=== PATIENT | female | born 2005 | race Caucasian/White ===

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

== ENCOUNTER 2024-05-11 22:47 | Emergency (ER) | payer BC, MEDICAID ==
[2024-05-11] MEDS: Albuterol/Ipratropium 3.0-0.5 MG/3 ML Neb Soln ONE (23:00)
[2024-05-11] MEDS: Albuterol/Ipratropium 3.0-0.5 MG/3 ML Neb Soln NEB ONE (23:00)
[2024-05-12 00:02] LABS: HEMATOCRIT 38.9 % (33.0-47.0); HEMOGLOBIN 13.3 g/dL (12.0-16.0); MEAN CORPUSCULAR HEMOGLOBIN 28.5 pg (26.0-32.0); MEAN CORPUSCULAR HGB CONC 34.2 g/dL (32.0-36.0); MEAN CORPUSCULAR VOLUME 83.3 fL (78.0-93.0); PLATELET COUNT,PLT 394 x10^3/uL (130-400); RED BLOOD CELL COUNT 4.67 x10^6/uL (4.00-5.50)
[2024-05-12 00:13] LABS: BAND PERCENT MAN 3 % (0-6); LYMPHOCYTES ABSOLUTE MAN 1.3 x10^3/uL (1.0-4.8); LYMPHOCYTES PERCENT MAN 6 % (25-50); MONOCYTES ABSOLUTE MAN 0.9 x10^3/uL (0.0-0.8); MONOCYTES PERCENT MAN 4 % (2-11); NEUTROPHILS ABSOLUTE MAN 19.8 x10^3/uL (1.8-7.7); SEG NEUTROPHILS PERCENT MAN 87 % (50-80)
[2024-05-12 00:14] LABS: PLATELET COUNT ESTIMATE ADEQUATE; TOXIC GRANULATION OCCASIONAL
[2024-05-12] MEDS: Acetaminophen 500 MG Tab PO ONE (00:35)
[2024-05-12] MEDS: Dexamethasone 4 MG/ML SDV IM ONE (00:50)
[2024-05-12] MEDS: Take Home: Albuterol 0.083% 2.5 MG/3 ML Neb Soln, 5 Neb Pack NEB ONE (01:10)
[2024-05-12 08:05] VITALS: BP 125/68; PULSE 132
== END 2024-05-12 01:18 | disposition home or self-care (01) ==
LOC: VM.ED 22:47
DX: J45.909 Unspecified asthma, uncomplicated (principal); Z88.8 Allergy status to other drugs, medicaments and biological substances; Z91.048 Other nonmedicinal substance allergy status; Z79.899 Other long term (current) drug therapy
CPT/HCPCS: 36415; 71046; 85025; 86140; 94640; 96372; 99284; 99285; A9270; J1100; J7620-GY